=== PATIENT | female | born 1935 | race Caucasian/White ===

== ENCOUNTER 2021-07-05 12:30 | Inpatient (IN) | payer OTHER ==
[2021-07-05] MEDS ORDERED: ETOMIDATE 40 MG/20 ML VIAL IVPUSH ONE (12:35)
[2021-07-05] MEDS ORDERED: ROCURONIUM BROMIDE 50 MG/5 ML VIAL IV ONE (12:35)
[2021-07-05 13:12] LABS: BASO % 1.2 % (0-2.0); EOS % 0.1 % (0-4.5); HEMATOCRIT 36.9 % (32.4-45.2); HEMOGLOBIN 12.6 GM/dL (10.7-15.3); LYMPH % 25.2 % (8-40); MCH 31.1 pg (25.7-33.7); MCHC 34.2 g/dl (32.0-36.0); MEAN CELL VOLUME 91.1 fl (80-96); MEAN PLT VOLUME 6.7 fl (7.5-11.1); MONO % 6.8 % (3.8-10.2); NEUT % 66.7 % (42.8-82.8); PLATELET COUNT 315 10^3/uL (134-434); RBC 4.05 M/mm3 (3.60-5.2); RDW 17.1 % (11.6-15.6); WHITE BLOOD COUNT 5.1 K/mm3 (4.0-10.0)
[2021-07-05 13:17] LABS: INR 1.42 (0.83-1.09)
[2021-07-05 13:33] LABS: CHLORIDE 111 mmol/L (98-107); SODIUM 143 mmol/L (136-145)
[2021-07-05 13:36] LABS: ALBUMIN 1.9 g/dl (3.4-5.0); ANION GAP 12 MMOL/L (8-16); CALCIUM 8.1 mg/dL (8.5-10.1); CO2 20 mmol/L (21-32); GLUCOSE,RANDOM 125 mg/dL (74-106)
[2021-07-05 13:39] LABS: CREATININE 1.1 mg/dL (0.55-1.3); SGOT/AST 19 U/L (15-37); SGPT/ALT 16 U/L (13-61)
[2021-07-05 13:41] LABS: BILIRUBIN,TOTAL 0.5 mg/dL (0.2-1); TOT PROT 5.9 g/dl (6.4-8.2)
[2021-07-05 13:42] LABS: ALK PHOS 108 U/L (45-117)
[2021-07-05 13:48] LABS: LACTIC ACID 4.1 mmol/L (0.4-2.0)
[2021-07-05] MEDS ORDERED: SODIUM CHLORIDE 0.9% 500 ML INFUS.BAG IV ONE (13:54)
[2021-07-05] MEDS: PROPOFOL 1,000,000 MCG/100 ML VIAL IVPB SCH (13:59)
[2021-07-05] MEDS ORDERED: METOPROLOL TARTRATE 5 MG/5 ML VIAL IVPUSH ONE (14:34)
[2021-07-05] MEDS ORDERED: METOPROLOL TARTRATE 5 MG/5 ML VIAL ONE (14:35)
[2021-07-05] MEDS ORDERED: VANCOMYCIN 1 GM in D5W (PRE-DOCKED) 1,000 MG/250 ML IVPB ONE (14:55)
[2021-07-05] MEDS ORDERED: PIPERACILLIN/TAZOB 4.5 GM 4.5 GM in DEXTROSE 5%-WATER 100 ML IVPB ONE (14:55)
[2021-07-05] MEDS ORDERED: VANCOMYCIN 1 GRAM (PRE-DOCKED) 1,000 MG/250 ML BAG IVPB ONE (15:03)
[2021-07-05] MEDS ORDERED: PIPERACILLIN/TAZOB 4.5 GM 4.5 GM/100 ML BAG IVPB ONE (15:03)
[2021-07-05 15:40] LABS: EPI CELLS >36 /uL (0-25.1); HYALINE CASTS 3 /uL (0-3.1); PH,URINE >= 9.0 (5.0-8.0); URINE APPEARANCE TURBID; URINE BACTERIA 872 /uL (0-1359); URINE BILIRUBIN NEGATIVE (NEGATIVE); URINE COLOR YELLOW; URINE GLUCOSE (UA) NEGATIVE (NEGATIVE); URINE KETONE NEGATIVE (NEGATIVE); URINE LEUK ESTERASE TRACE (NEGATIVE); URINE NITRITE NEGATIVE (NEGATIVE); URINE PROTEIN 2+ (NEGATIVE); URINE WBC 71 /uL (0-25.8)
[2021-07-05] MEDS ORDERED: dilTIAZem HCL 50 MG/10 ML - 10 ML VIAL IVPUSH ONE (15:59)
[2021-07-05] MEDS ORDERED: dilTIAZem HCL 25 MG/5 ML - 5 ML VIAL ONE (16:41)
[2021-07-05] MEDS ORDERED: methylPREDNISolone NA SUCC 125 MG/2 ML VIAL IVPB ONE (17:47)
[2021-07-05] MEDS ORDERED: FAMOTIDINE 20 MG/50 ML IVPB 20 MG/50 ML MG IVPB ONE (17:47)
[2021-07-05 21:25] LABS: URINE RBC 44 /uL (0-23.9)
[2021-07-05] MEDS: CHLORHEXIDINE GLUCONATE 4% CLEANSER FOR DECOLONIZATION TP SCH (21:54)
[2021-07-05] MEDS: MUPIROCIN 2% TOPICAL OINTMENT FOR DECOLONIZATION NS SCH (21:54)
[2021-07-06 06:41] LABS: ARTERIAL BLD GAS O2 SATURATION 99.9 % (95-98); ARTERIAL BLOOD GAS BASE EXCESS -5.9 mmol/L (-2-2); ARTERIAL BLOOD GAS PO2 451.2 mmHg (80-100); ARTERIAL BLOOD GAS pH 7.534 (7.350-7.450)
[2021-07-06 06:46] LABS: HEMATOCRIT 30.1 % (32.4-45.2); HEMOGLOBIN 10.3 GM/dL (10.7-15.3); MCH 31.9 pg (25.7-33.7); MCHC 34.3 g/dl (32.0-36.0); MEAN CELL VOLUME 92.9 fl (80-96); MEAN PLT VOLUME 7.2 fl (7.5-11.1); PLATELET COUNT 252 10^3/uL (134-434); RBC 3.24 M/mm3 (3.60-5.2); RDW 17.6 % (11.6-15.6); WHITE BLOOD COUNT 9.7 K/mm3 (4.0-10.0)
[2021-07-06 06:54] LABS: ALLENS TEST POSITIVE; PT'S TEMP 97.6; VENT MODE A/C; VENT RATE 14
[2021-07-06 07:03] LABS: CALCIUM 7.3 mg/dL (8.5-10.1)
[2021-07-06 07:04] LABS: ALBUMIN 1.6 g/dl (3.4-5.0); BLOOD UREA NITROGEN 21.8 mg/dL (7-18); MAGNESIUM 1.7 mg/dL (1.8-2.4)
[2021-07-06 07:07] LABS: CREATININE 0.8 mg/dL (0.55-1.3); PHOSPHOROUS 3.7 mg/dL (2.5-4.9)
[2021-07-06 07:08] LABS: BILIRUBIN,TOTAL 0.5 mg/dL (0.2-1)
[2021-07-06 07:09] LABS: TOT PROT 4.8 g/dl (6.4-8.2)
[2021-07-06] MEDS: KCL 10 MEQ IVPB 10 MEQ/100 ML INFUS.BAG IVPB SCH ×2 (08:58→09:38)
[2021-07-06] MEDS ORDERED: MAGNESIUM 2GM/50ML STERILE WATER IVPB IVPB ONE (09:00)
[2021-07-06 10:38] LABS: ANISOCYTOSIS 0; HELMET CELLS 0; HOWELL-JOLLY BODIES 0; MACROCYTOSIS 0; OVALOCYTE 0; PLATELET ESTIMATE NORMAL; ROULEAU 0; SICKELED CELLS 0; TARGET CELLS 0; TEAR DROP CELLS 0; TOXIC GRANULATION 0
[2021-07-06] MEDS: PROPOFOL 1,000,000 MCG/100 ML VIAL IVPB SCH ×2 (13:08→21:54)
[2021-07-06] MEDS ORDERED: CEFEPIME HCL 1 GM VIAL (RESTRICTED TO ID) ONE ×2 (13:12→21:47)
[2021-07-06] MEDS ORDERED: DEXTROSE 5%-WATER 100 ML IVPB ONE ×2 (13:12→21:47)
[2021-07-06] MEDS ORDERED: PT OWN MED DRAWER 7, Y5N ONE (13:12)
[2021-07-06] MEDS: MUPIROCIN 2% TOPICAL OINTMENT FOR DECOLONIZATION NS SCH ×2 (13:15→21:51)
[2021-07-06] MEDS: CEFEPIME 1 GM in DEXTROSE 5%-WATER 1 GM/100 ML BAG IVPB SCH ×2 (13:15→21:51)
[2021-07-06] MEDS: VANCOMYCIN 1 GRAM (PRE-DOCKED) 1,000 MG/250 ML BAG IVPB SCH (18:17)
[2021-07-06 18:56] LABS: LACTIC ACID 3.9 mmol/L (0.4-2.0)
[2021-07-06] MEDS ORDERED: SODIUM CHLORIDE 1,000 ML IV SCH (19:15)
[2021-07-06] MEDS: CHLORHEXIDINE GLUCONATE 4% CLEANSER FOR DECOLONIZATION TP SCH (21:51)
[2021-07-07 06:59] LABS: HEMOGLOBIN 11.2 GM/dL (10.7-15.3); MCHC 33.1 g/dl (32.0-36.0); MEAN CELL VOLUME 93.7 fl (80-96); MEAN PLT VOLUME 7.2 fl (7.5-11.1); PLATELET COUNT 301 10^3/uL (134-434); RBC 3.62 M/mm3 (3.60-5.2); RDW 18.5 % (11.6-15.6); WHITE BLOOD COUNT 10.9 K/mm3 (4.0-10.0)
[2021-07-07 07:20] LABS: CALCIUM 7.4 mg/dL (8.5-10.1)
[2021-07-07 07:21] LABS: ALBUMIN 1.7 g/dl (3.4-5.0); MAGNESIUM 2.5 mg/dL (1.8-2.4)
[2021-07-07 07:24] LABS: PHOSPHOROUS 3.3 mg/dL (2.5-4.9)
[2021-07-07 07:25] LABS: BILIRUBIN,TOTAL 0.3 mg/dL (0.2-1); TOT PROT 5.4 g/dl (6.4-8.2)
[2021-07-07] MEDS ORDERED: DEXTROSE 5%-WATER 100 ML IVPB ONE ×2 (10:08→22:33)
[2021-07-07] MEDS ORDERED: CEFEPIME HCL 1 GM VIAL (RESTRICTED TO ID) ONE ×2 (10:08→22:33)
[2021-07-07] MEDS: D5-1/2NS+20 MEQ KCL - 20 MEQ/1,000 ML INFUS.BAG IV SCH ×2 (10:14→23:39)
[2021-07-07] MEDS: CEFEPIME 1 GM in DEXTROSE 5%-WATER 1 GM/100 ML BAG IVPB SCH ×2 (10:17→22:38)
[2021-07-07 12:09] LABS: ANISOCYTOSIS 1+; PLATELET ESTIMATE NORMAL
[2021-07-07 14:24] LABS: ARTERIAL BLD GAS O2 SATURATION 99.1 % (95-98); ARTERIAL BLOOD GAS BASE EXCESS -6.2 mmol/L (-2-2); ARTERIAL BLOOD GAS PO2 147.3 mmHg (80-100); ARTERIAL BLOOD GAS pH 7.497 (7.350-7.450)
[2021-07-07 14:26] LABS: ALLENS TEST POSITIVE
[2021-07-07] MEDS: PROPOFOL 1,000,000 MCG/100 ML VIAL IVPB SCH (16:23)
[2021-07-07] MEDS: VANCOMYCIN 1 GRAM (PRE-DOCKED) 1,000 MG/250 ML BAG IVPB SCH (16:27)
[2021-07-07] MEDS: MUPIROCIN 2% TOPICAL OINTMENT FOR DECOLONIZATION NS SCH ×2 (16:31→22:40)
[2021-07-07] MEDS ORDERED: PT OWN MED DRAWER 7, Y5N ONE (22:34)
[2021-07-07] MEDS: CHLORHEXIDINE GLUCONATE 4% CLEANSER FOR DECOLONIZATION TP SCH (22:40)
[2021-07-08 06:58] LABS: BASO % 0.3 % (0-2.0); EOS % 0.3 % (0-4.5); HEMATOCRIT 28.2 % (32.4-45.2); HEMOGLOBIN 9.5 GM/dL (10.7-15.3); LYMPH % 11.2 % (8-40); MCH 31.7 pg (25.7-33.7); MCHC 33.8 g/dl (32.0-36.0); MEAN CELL VOLUME 93.9 fl (80-96); MEAN PLT VOLUME 7.3 fl (7.5-11.1); MONO % 8.4 % (3.8-10.2); NEUT % 79.8 % (42.8-82.8); PLATELET COUNT 270 10^3/uL (134-434); RDW 17.9 % (11.6-15.6); WHITE BLOOD COUNT 6.1 K/mm3 (4.0-10.0)
[2021-07-08 07:13] LABS: ALBUMIN 1.5 g/dl (3.4-5.0); CALCIUM 7.3 mg/dL (8.5-10.1); MAGNESIUM 2.1 mg/dL (1.8-2.4)
[2021-07-08 07:16] LABS: CREATININE 0.8 mg/dL (0.55-1.3); PHOSPHOROUS 2.2 mg/dL (2.5-4.9)
[2021-07-08 07:17] LABS: BILIRUBIN,TOTAL 0.3 mg/dL (0.2-1)
[2021-07-08 07:18] LABS: TOT PROT 4.8 g/dl (6.4-8.2)
[2021-07-08] MEDS ORDERED: PT OWN MED DRAWER 7, Y5N ONE (08:13)
[2021-07-08] MEDS ORDERED: DEXTROSE 5%-WATER 100 ML IVPB ONE ×2 (08:14→21:23)
[2021-07-08] MEDS ORDERED: CEFEPIME HCL 1 GM VIAL (RESTRICTED TO ID) ONE ×2 (08:14→21:23)
[2021-07-08] MEDS: CEFEPIME 1 GM in DEXTROSE 5%-WATER 1 GM/100 ML BAG IVPB SCH ×2 (09:07→21:23)
[2021-07-08] MEDS: MUPIROCIN 2% TOPICAL OINTMENT FOR DECOLONIZATION NS SCH ×2 (09:11→21:22)
[2021-07-08] MEDS: TAMSULOSIN HCL 0.4 MG CAP PO SCH (11:36)
[2021-07-08] MEDS: LEVOTHYROXINE NA 50 MCG TABLET (FP) PO SCH (11:36)
[2021-07-08] MEDS: PROPOFOL 1,000,000 MCG/100 ML VIAL IVPB SCH (11:56)
[2021-07-08] MEDS: D5-1/2NS+20 MEQ KCL - 20 MEQ/1,000 ML INFUS.BAG IV SCH ×2 (11:57→19:00)
[2021-07-08] MEDS: VANCOMYCIN 1 GRAM (PRE-DOCKED) 1,000 MG/250 ML BAG IVPB SCH (17:34)
[2021-07-08] MEDS: CHLORHEXIDINE GLUCONATE 4% CLEANSER FOR DECOLONIZATION TP SCH (21:21)
[2021-07-08] MEDS: MIRTAZAPINE 15 MG TABLET (FP) PO SCH (21:23)
[2021-07-09] MEDS: LEVOTHYROXINE NA 50 MCG TABLET (FP) PO SCH (06:07)
[2021-07-09 06:48] LABS: HEMATOCRIT 30.8 % (32.4-45.2); HEMOGLOBIN 10.6 GM/dL (10.7-15.3); MCH 31.5 pg (25.7-33.7); MCHC 34.5 g/dl (32.0-36.0); MEAN CELL VOLUME 91.5 fl (80-96); MEAN PLT VOLUME 7.1 fl (7.5-11.1); PLATELET COUNT 288 10^3/uL (134-434); RBC 3.36 M/mm3 (3.60-5.2); RDW 17.7 % (11.6-15.6); WHITE BLOOD COUNT 6.4 K/mm3 (4.0-10.0)
[2021-07-09 07:13] LABS: ALBUMIN 1.6 g/dl (3.4-5.0); BLOOD UREA NITROGEN 12.9 mg/dL (7-18); CALCIUM 7.1 mg/dL (8.5-10.1); MAGNESIUM 1.8 mg/dL (1.8-2.4)
[2021-07-09 07:16] LABS: CREATININE 0.7 mg/dL (0.55-1.3)
[2021-07-09 07:17] LABS: PHOSPHOROUS 1.8 mg/dL (2.5-4.9)
[2021-07-09 07:18] LABS: BILIRUBIN,TOTAL 0.3 mg/dL (0.2-1); TOT PROT 5.2 g/dl (6.4-8.2)
[2021-07-09] MEDS ORDERED: SODIUM PHOSPHATE - 15 MM in SODIUM CHLORIDE 250 ML IVPB ONE (09:00)
[2021-07-09 09:03] LABS: ANISOCYTOSIS 0; MACROCYTOSIS 0; PLATELET ESTIMATE NORMAL
[2021-07-09] MEDS ORDERED: DEXTROSE 5%-WATER 100 ML IVPB ONE ×2 (09:39→19:54)
[2021-07-09] MEDS ORDERED: CEFEPIME HCL 1 GM VIAL (RESTRICTED TO ID) ONE ×2 (09:39→19:54)
[2021-07-09] MEDS: TAMSULOSIN HCL 0.4 MG CAP PO SCH (09:46)
[2021-07-09] MEDS: CEFEPIME 1 GM in DEXTROSE 5%-WATER 1 GM/100 ML BAG IVPB SCH ×2 (09:46→21:37)
[2021-07-09] MEDS ORDERED: METOPROLOL TARTRATE 5 MG/5 ML VIAL IVPUSH PRN (13:00)
[2021-07-09] MEDS ORDERED: dilTIAZem HCL 25 MG/5 ML - 5 ML VIAL IVPUSH ONE (13:38)
[2021-07-09] MEDS ORDERED: METOPROLOL TARTRATE 5 MG/5 ML VIAL IVPUSH ONE (13:59)
[2021-07-09 15:59] VITALS: BMI 19.8
[2021-07-09] MEDS: MUPIROCIN 2% TOPICAL OINTMENT FOR DECOLONIZATION NS SCH ×2 (17:49→21:36)
[2021-07-09] MEDS: VANCOMYCIN 1 GRAM (PRE-DOCKED) 1,000 MG/250 ML BAG IVPB SCH (18:10)
[2021-07-09] MEDS: CHLORHEXIDINE GLUCONATE 4% CLEANSER FOR DECOLONIZATION TP SCH (21:36)
[2021-07-09] MEDS: D5-1/2NS+20 MEQ KCL - 20 MEQ/1,000 ML INFUS.BAG IV SCH (21:36)
[2021-07-09] MEDS: MIRTAZAPINE 15 MG TABLET (FP) PO SCH (21:37)
[2021-07-09] MEDS ORDERED: ACETAMINOPHEN 1000 MG/100 ML VIAL IVPB ONE (22:25)
[2021-07-10] MEDS: LEVOTHYROXINE NA 50 MCG TABLET (FP) PO SCH (06:16)
[2021-07-10] MEDS ORDERED: CEFEPIME HCL 1 GM VIAL (RESTRICTED TO ID) ONE ×2 (08:51→21:19)
[2021-07-10] MEDS ORDERED: DEXTROSE 5%-WATER 100 ML IVPB ONE ×2 (08:51→21:19)
[2021-07-10] MEDS: TAMSULOSIN HCL 0.4 MG CAP PO SCH (08:51)
[2021-07-10] MEDS: CEFEPIME 1 GM in DEXTROSE 5%-WATER 1 GM/100 ML BAG IVPB SCH ×2 (09:27→21:20)
[2021-07-10 12:01] LABS: HEMATOCRIT 33.3 % (32.4-45.2); HEMOGLOBIN 11.1 GM/dL (10.7-15.3); MCH 31.8 pg (25.7-33.7); MCHC 33.4 g/dl (32.0-36.0); MEAN CELL VOLUME 95.2 fl (80-96); MEAN PLT VOLUME 7.4 fl (7.5-11.1); PLATELET COUNT 184 10^3/uL (134-434); RDW 17.8 % (11.6-15.6); WHITE BLOOD COUNT 10.7 K/mm3 (4.0-10.0)
[2021-07-10 12:13] LABS: ALBUMIN 1.4 g/dl (3.4-5.0); CALCIUM 7.6 mg/dL (8.5-10.1)
[2021-07-10 12:14] LABS: BLOOD UREA NITROGEN 15.2 mg/dL (7-18); CO2 19 mmol/L (21-32); GLUCOSE,RANDOM 84 mg/dL (74-106)
[2021-07-10 12:17] LABS: CREATININE 0.8 mg/dL (0.55-1.3); SGOT/AST 21 U/L (15-37); SGPT/ALT 17 U/L (13-61)
[2021-07-10 12:18] LABS: BILIRUBIN,TOTAL 0.8 mg/dL (0.2-1); TOT PROT 4.8 g/dl (6.4-8.2)
[2021-07-10 12:19] LABS: ALK PHOS 78 U/L (45-117)
[2021-07-10 12:31] LABS: CHLORIDE 113 mmol/L (98-107); SODIUM 143 mmol/L (136-145)
[2021-07-10] MEDS: D5-1/2NS+20 MEQ KCL - 20 MEQ/1,000 ML INFUS.BAG IV SCH ×2 (12:40→21:16)
[2021-07-10] MEDS: MUPIROCIN 2% TOPICAL OINTMENT FOR DECOLONIZATION NS SCH (12:42)
[2021-07-10 13:04] LABS: ANION GAP 11 MMOL/L (8-16)
[2021-07-10 13:21] LABS: ANISOCYTOSIS 0; HELMET CELLS 0; HOWELL-JOLLY BODIES 0; MACROCYTOSIS 0; OVALOCYTE 0; PLATELET ESTIMATE NORMAL; ROULEAU 0; SICKELED CELLS 0; TARGET CELLS 0; TEAR DROP CELLS 0; TOXIC GRANULATION 0
[2021-07-10 14:13] LABS: MAGNESIUM 1.5 mg/dL (1.8-2.4)
[2021-07-10] MEDS ORDERED: POTASSIUM CHLORIDE 10 MEQ PREMIX IVPB (POTASSIUM RIDER) IVPB SCH (14:15)
[2021-07-10 14:16] LABS: PHOSPHOROUS 3.5 mg/dL (2.5-4.9)
[2021-07-10] MEDS ORDERED: MAGNESIUM SULFATE IN WATER 2 GM/50 ML IVPB IVPB ONE (15:22)
[2021-07-10] MEDS: KCL 10 MEQ IVPB 10 MEQ/100 ML INFUS.BAG IVPB SCH ×3 (15:30→19:05)
[2021-07-10] MEDS: VANCOMYCIN 1 GRAM (PRE-DOCKED) 1,000 MG/250 ML BAG IVPB SCH (17:14)
[2021-07-10] MEDS: CHLORHEXIDINE GLUCONATE 4% CLEANSER FOR DECOLONIZATION TP SCH (21:16)
[2021-07-10] MEDS: MIRTAZAPINE 15 MG TABLET (FP) PO SCH (21:16)
[2021-07-11] MEDS: LEVOTHYROXINE NA 50 MCG TABLET (FP) PO SCH (06:17)
[2021-07-11 06:48] LABS: HEMOGLOBIN 10.5 GM/dL (10.7-15.3); MCH 31.6 pg (25.7-33.7); MCHC 33.9 g/dl (32.0-36.0); MEAN CELL VOLUME 93.5 fl (80-96); PLATELET COUNT 184 10^3/uL (134-434); RBC 3.32 M/mm3 (3.60-5.2); RDW 17.1 % (11.6-15.6); WHITE BLOOD COUNT 10.3 K/mm3 (4.0-10.0)
[2021-07-11 07:19] LABS: BLOOD UREA NITROGEN 18.2 mg/dL (7-18); CALCIUM 7.8 mg/dL (8.5-10.1)
[2021-07-11 07:20] LABS: ALBUMIN 1.4 g/dl (3.4-5.0)
[2021-07-11 07:22] LABS: CREATININE 0.9 mg/dL (0.55-1.3)
[2021-07-11 07:24] LABS: BILIRUBIN,TOTAL 0.8 mg/dL (0.2-1); TOT PROT 4.9 g/dl (6.4-8.2)
[2021-07-11] MEDS ORDERED: KCL 10 MEQ IVPB 10 MEQ/100 ML INFUS.BAG IVPB SCH (07:45)
[2021-07-11] MEDS: TAMSULOSIN HCL 0.4 MG CAP PO SCH (08:43)
[2021-07-11] MEDS ORDERED: CEFEPIME HCL 1 GM VIAL (RESTRICTED TO ID) ONE (09:40)
[2021-07-11] MEDS ORDERED: DEXTROSE 5%-WATER 100 ML IVPB ONE (09:40)
[2021-07-11] MEDS: CEFEPIME 1 GM in DEXTROSE 5%-WATER 1 GM/100 ML BAG IVPB SCH (10:05)
[2021-07-11] MEDS: KCL 10 MEQ IVPB 10 MEQ/100 ML INFUS.BAG IVPB SCH ×2 (10:42→14:11)
[2021-07-11 11:03] LABS: MAGNESIUM 2.2 mg/dL (1.8-2.4)
[2021-07-11 11:07] LABS: PHOSPHOROUS 3.1 mg/dL (2.5-4.9)
[2021-07-11 11:50] LABS: ANISOCYTOSIS 1+; MACROCYTOSIS 0; PLATELET ESTIMATE NORMAL
[2021-07-11] MEDS: MORPHINE SULFATE/0.9% NACL/PF 100 MG/100 ML BAG IVPB SCH (15:59)
[2021-07-11] MEDS: SODIUM CHLORIDE 1,000 ML IV SCH (16:00)
[2021-07-11 16:22] VITALS: BP 92/64; TEMP 98.2
[2021-07-12] MEDS: SODIUM CHLORIDE 1,000 ML IV SCH (18:15)
[2021-07-12] MEDS: MORPHINE SULFATE/0.9% NACL/PF 100 MG/100 ML BAG IVPB SCH (18:50)
[2021-07-12 22:24] VITALS: PULSE 141
== END 2021-07-13 02:04 | disposition expired | DRG 208 ==
LOC: JER 12:30 → JICU 14:08 → J2W 07-09 23:59
PROVIDERS: ADMIT Internal Medicine Pulmonary Disease
PROC: 5A1945Z Respiratory Ventilation, 24-96 Consecutive Hours (ICD-10-PCS; principal; 2021-07-05)
PROC: 0BH17EZ Insertion of Endotracheal Airway into Trachea, Via Natural or Artificial Opening (ICD-10-PCS; 2021-07-05)
DX: J96.01 Acute respiratory failure with hypoxia (principal); J18.9 Pneumonia, unspecified organism; I71.8 Aortic aneurysm of unspecified site, ruptured; G93.41 Metabolic encephalopathy; R57.9 Shock, unspecified; E87.2 Acidosis; I50.32 Chronic diastolic (congestive) heart failure; N39.0 Urinary tract infection, site not specified; I48.91 Unspecified atrial fibrillation; I25.10 Atherosclerotic heart disease of native coronary artery without angina pectoris; F03.90 Unspecified dementia, unspecified severity, without behavioral disturbance, psychotic disturbance, mood disturbance, and anxiety; I34.0 Nonrheumatic mitral (valve) insufficiency; I27.20 Pulmonary hypertension, unspecified; Z98.61 Coronary angioplasty status; E83.42 Hypomagnesemia; E87.6 Hypokalemia; R41.82 Altered mental status, unspecified; I11.0 Hypertensive heart disease with heart failure
CPT/HCPCS: 36415; 36600; 70450-TC; 70496-TC; 70498-TC; 71045-TC-FY; 71275-TC; 74174-TC; 80053; 81003; 82550; 82803; 82962; 83605; 83735; 83880; 84100; 84484; 85025; 85610; 86850; 86900; 86901; 87040; 87086; 87804; 93005; 93010; 93306-TC; 94002; 94660; 97162-GP; 99285-25; C9803; G0480; J0131; U0003; U0005